=== PATIENT | female | born 1960 | race Caucasian/White ===

== ENCOUNTER 2016-04-28 11:20 | Emergency (ER) | payer OTHER ==
[~2016-04-28] VITALS: Ht 165.1 cm; Wt 75.0 kg
[2016-04-28 11:22] VITALS: BP 129/87; PULSE 95; RESP 18; TEMP 98; O2SAT 97
[2016-04-28 11:28] VITALS: BP 129/87; PULSE 92; RESP 18; O2SAT 97
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
[2016-04-28] MEDS ORDERED: SODIUM CHLORIDE 0.9% FLUSH 5 ML FLUSH IVF PRN (11:45)
[2016-04-28] MEDS ORDERED: SODIUM CHLOR 0.9% 1000 ML INJ 1,000 ML IV ONE (12:00)
[2016-04-28 12:06] LABS: AUTOMATED NEUTROPHIL # 3.4 TH/MM3 (1.8-7.7); BASOPHIL % 0.8 % (0.0-2.0); EOSINOPHIL # 0.2 TH/MM3 (0-0.4); EOSINOPHIL % 3.4 % (0.0-4.0); HEMATOCRIT 44.2 % (35.0-46.0); HEMO FLAGS DIFF FINAL; LYMPH % 27.9 % (9.0-44.0); LYMPHOCYTE # 1.6 TH/MM3 (1.0-4.8); MEAN CELL VOLUME 90.9 FL (80.0-100.0); MEAN CORPUSCULAR HEMOGLOBIN 31.6 PG (27.0-34.0); MEAN CORPUSCULAR HGB CONC 34.8 % (32.0-36.0); MONO % 9.5 % (0.0-8.0); NEUT % 58.4 % (16.0-70.0); PLATELET COUNT 188 TH/MM3 (150-450); RED BLOOD COUNT 4.86 MIL/MM3 (4.00-5.30); RED CELL DISTRIBUTION WIDTH 13.5 % (11.6-17.2); WHITE BLOOD COUNT 5.9 TH/MM3 (4.0-11.0)
[2016-04-28 12:16] LABS: PROTHROMBIN TIME - PATIENT 10.7 SEC (9.8-11.6)
[2016-04-28 12:28] LABS: BICARBONATE 23.4 MEQ/L (21.0-32.0); POTASSIUM 4.1 MEQ/L (3.5-5.1)
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
[2016-04-28] MEDS ORDERED: IOHEXOL 350 MG/ML 10 ML VIAL (for RAD DIAG) IV ONE (13:31)
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
== END 2016-04-28 14:53 | disposition home or self-care (01) ==
LOC: NEPA 11:20
DX: S00.11XA Contusion of right eyelid and periocular area, initial encounter (principal); S09.93XA Unspecified injury of face, initial encounter; E07.9 Disorder of thyroid, unspecified; Z72.0 Tobacco use; V43.52XA Car driver injured in collision with other type car in traffic accident, initial encounter; Y99.8 Other external cause status
CPT/HCPCS: 70450; 70486; 71260; 72125; 74177; 80048; 85025; 85610; 85730; 86850; 86900; 86901; 99284; J7030; Q9967